=== PATIENT | male | born 1965 | race American Indian/Alaskan Native ===

== ENCOUNTER 2021-10-31 13:56 | Emergency (ER) | payer MEDICARE, MEDICAID ==
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
[2021-10-31 17:07] VITALS: BP 116/87
== END 2021-10-31 17:06 | disposition home or self-care (01) ==
LOC: ED 13:56
DX: T40.1X1A Poisoning by heroin, accidental (unintentional), initial encounter (principal); Y92.89 Other specified places as the place of occurrence of the external cause; F17.200 Nicotine dependence, unspecified, uncomplicated; F14.90 Cocaine use, unspecified, uncomplicated; Z72.89 Other problems related to lifestyle
CPT/HCPCS: 99283

== ENCOUNTER 2022-02-01 12:48 | Emergency (ER) | payer MEDICARE, MEDICAID ==
[2022-02-01] MEDS ORDERED: SODIUM CHLORIDE 0.9% 1000 ML 1,000 ML IV ONE (13:18)
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
[2022-02-01 14:20] LABS: Hematocrit 38.1 % (35.5-45.6); Hemoglobin 13.3 gm/dl (11.8-15.2); Mean Corpuscular HGB Conc 35 % (32-34); Mean Corpuscular Volume 91 fl (84-94); Platelet Count 329 K/mm3 (140-440); Red Blood Count 4.19 M/mm3 (3.65-5.03); Red Cell Distribution Width 14.2 % (13.2-15.2)
[2022-02-01 14:32] LABS: Alanine Aminotransferase 11 units/L (7-56); Albumin 3.8 g/dL (3.9-5); BUN/Creatinine Ratio 14; Blood Urea Nitrogen 18 mg/dL (9-20); Calcium 8.9 mg/dL (8.4-10.2); Hemolysis Index 1
[2022-02-01 16:00] VITALS: BP 159/74
== END 2022-02-01 15:58 | disposition home or self-care (01) ==
LOC: ED 12:48
DX: T40.2X1A Poisoning by other opioids, accidental (unintentional), initial encounter (principal); F17.200 Nicotine dependence, unspecified, uncomplicated; Y92.89 Other specified places as the place of occurrence of the external cause
CPT/HCPCS: 36415; 80053; 83735; 85027; 96360; 99284; J7030; 80320; G0480

== ENCOUNTER 2022-03-12 19:19 | Emergency (ER) | payer MEDICARE ==
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
[2022-03-12 21:09] LABS: Basophils % (Auto) 0.3 % (0.0-1.8); Eosinophils # (Auto) 0.3 K/mm3 (0.0-0.4); Eosinophils % (Auto) 3.8 % (0.0-4.3); Hematocrit 32.7 % (35.5-45.6); Hemoglobin 11.4 gm/dl (11.8-15.2); Lymphocytes # (Auto) 2.1 K/mm3 (1.2-5.4); Lymphocytes % (Auto) 27.8 % (13.4-35.0); Mean Corpuscular HGB Conc 35 % (32-34); Mean Corpuscular Volume 92 fl (84-94); Monocytes # (Auto) 0.5 K/mm3 (0.0-0.8); Monocytes % (Auto) 7.1 % (0.0-7.3); Platelet Count 431 K/mm3 (140-440); Red Blood Count 3.57 M/mm3 (3.65-5.03)
[2022-03-12 21:23] LABS: Amphetamine Screen,Urine Negative; Benzodiazepines Screen,Urine Negative; Cannabinoid Screen,Urine Negative; Methadone Screen,Urine Negative; Opiate Screen,Urine Negative
[2022-03-12 21:31] LABS: Alanine Aminotransferase 15 units/L (7-56); Albumin 3.5 g/dL (3.9-5); BUN/Creatinine Ratio 22; Blood Urea Nitrogen 22 mg/dL (9-20); Calcium 9.3 mg/dL (8.4-10.2); Hemolysis Index 1
[2022-03-12 21:44] LABS: Cocaine Screen,Urine Positive
[2022-03-12 22:30] VITALS: BP 99/74
--- NOTE | 2022-03-14 13:35 | Electrocardiograph Report ---
[facility] Test Date: 2022-03-12 Test Time: 20:22:16 Pat Name: CASSANDRA GANNON Department: Room: Gender: M Mgmt Consultant: GERALD Wills : 1965 Requested By: DARY FERRERA Order Number: [id number] Reading MD: Max Gaytan Measurements Intervals [place] Rate: 79 P: 69 VA: 159 QRS: -9 QRSD: 87 T: 32 QT: 387 QTc: 444 Interpretive Statements Sinus rhythm No previous ECG available for comparison Electronically Signed On 03-14-2022 13:35:01 EDT by Max Gaytan
== END 2022-03-12 22:30 | disposition home or self-care (01) ==
LOC: ED 19:19
DX: F14.90 Cocaine use, unspecified, uncomplicated (principal); F41.9 Anxiety disorder, unspecified; Z98.890 Other specified postprocedural states; F17.290 Nicotine dependence, other tobacco product, uncomplicated
CPT/HCPCS: 36415; 80053; 80307; 80320; 85025; 93005; 99283; G0480